=== PATIENT | male | born 1965 | race Caucasian/White ===

== ENCOUNTER 2023-07-13 08:11 | Inpatient (IN) ==
[2023-07-13 09:08] LABS: Appearance Urine Clear (Clear); Bilirubin Urine Negative (Negative); Blood Urine Negative (Negative); Color Urine Yellow; Glucose Urine UA Negative (Negative); Ketones Urine Negative (Negative); Leukocyte Esterase Urine Negative (Negative); Nitrite Urine Negative (Negative); Protein Urine Negative (Negative); Specific Gravity Urine 1.018 (1.000-1.030); Urobilinogen Urine Negative (Negative)
[2023-07-13 09:10] LABS: Prothrombin Time 10.5 Seconds (9.0-12.0)
[2023-07-13] MEDS: ACETAMINOPHEN 1,000 MG/100 ML VIAL IV STA (09:10)
[2023-07-13] MEDS: SODIUM CHLORIDE 0.9% 1,000 ML IV SCH (09:10)
[2023-07-13] MEDS: MoRPHine SULFATE 4 MG/ML 1 ML CARP\\VIAL IV STA ×2 (09:10→12:21)
[2023-07-13 09:11] LABS: Alanine Aminotransferase 21 U/L (7-52); Albumin Globulin Ratio 1.7 (0.9-2); Albumin Level 4.5 gm/dl (3.4-5.0); Alkaline Phosphatase 58 U/L (34-104); Anion Gap 8 (3-11); Aspartate Aminotransferase 16 U/L (13-39); BUN Creatinine Ratio 10.3 (10-20); Bilirubin,Total 0.7 mg/dl (0.2-1.0); Blood Urea Nitrogen 12 mg/dl (6-23); Calcium 9.2 mg/dl (8.6-10.3); Carbon Dioxide 29 mmol/L (21-32); Chloride 102 mmol/L (98-107); Creatinine Clr Calc Pharmacy 96.3 ml/min; Est GFR (African American) 80.6 ml/min; Est GFR (Non-African American) 69.5 ml/min; Globulin 2.7 gm/dl (2.5-4.0); Glucose 94 mg/dl (70-99(Fasting)); Lipase 8 U/L (11-82); Magnesium 1.6 mg/dl (1.7-2.4); Potassium 3.6 mmol/L (3.5-5.1); Sodium 139 mmol/L (136-145); Total Protein 7.2 gm/dl (6.0-8.3)
--- NOTE | 2023-07-13 09:12 | Emergency Department Note ---
Impression & Plan Abdominal pain, Crohn's disease ED Provider Note ED Provider Note NAME: CINDY GRAHAM AGE:57 SEX: Male : 1965 ARRIVES VIA: Private vehicle INFORMANT: Patient ED PROVIDER(s): Josefa Hinkle DO CHIEF COMPLAINT: Abdominal pain HPI: This is a 57-year-old male with a history of Crohn's disease who presents emerged part due to concern for abdominal pain which woke him up around 4 AM. He states the abdominal pain was central. He states he was unable to go back to sleep until 5 AM got up. He states he did have a bowel movement which to him seemed mostly normal except there was a smaller amount defecated, he did not notice any black or bloody stools. Patient states pain slowly through the morning has been constant but seems to be migrating more to the right. He denies nausea, vomiting, fevers or chills. He states this is inconsistent with prior Crohn's flares. He states no recent change in diet. He states he was recently changed from Humira to another similar injectable, Adalinumab, and he did have that administered this past week for the first time. He does get colonoscopies every 3 years, and follows with GI routinely. No known sick contacts, no recent travel. PAST MEDICAL HISTORY:See Below PAST SURGICAL HISTORY:See Below FAMILY HISTORY:See Below SOCIAL HISTORY:See Below HOME MEDICATIONS:See Below ALLERGIES:See Below VITALS:See Below PHYSICAL EXAMINATION: GENERAL: alert, uncomfortable appearing, well nourished, no distress, non-toxic EYE EXAM: normal conjunctiva, PERRL and EOM's grossly intact OROPHARYNX: no exudate, no erythema, lips, buccal mucosa, and tongue normal and mucous membranes are moist NECK: supple, no nuchal rigidity, no adenopathy, non-tender LUNGS: Clear to auscultation. Normal chest wall mechanics, no w/r/r HEART: no murmurs, S1 normal and S2 normal ABDOMEN: abdomen soft, central and right mid abdominal tenderness with palpation, normo-active bowel sounds, no masses, no rebound or guarding. Dull to percussion. SKIN: no rashes, petechiae, orbruising UPPER EXTREMITIES: upper extremities are grossly normal. FROM, nml pulses b/l. LOWER EXTREMITIES: No pitting edema. FROM, nml pulses b/l. NEURO EXAM: Normal sensorium, cranial nerves II-XII grossly intact, normal speech, no facial droop,nogross weakness of arms, no gross weakness of legs. Gross sensation intact. No ataxia. Vital Signs: reviewed and remarkable Differential Diagnosis: Crohn's flare, appendicitis, perforation, fistula, GI bleed, diverticulitis, bowel obstruction, mesenteric ischemia, ureterolithiasis, as well as others were MEDICAL DECISION MAKING: This is a 57-year-old male presents emergency department due to concern for abdominal pain that began early this morning at 4 AM. Patient uncomfortable appearing at bedside with both central and right lower quadrant abdominal pain. He was afebrile vital signs stable. Labs drawn and sent, IV established, EKG performed at bedside interpreted me and patient monitored on telemetry. He was started on IV fluids and given IV Tylenol and IV morphine for pain. IV Zofran added additionally for his nausea. Patient's labs did reveal leukocytosis, but were otherwise reassuring. CT is read by radiology showed evidence of acute inflammation suggestive of flare of his known inflammatory bowel disease, no appendicitis, no perforation, no bowel obstruction, no other acute pathology noted. Patient was given additional dose of morphine. Due to concern for management of acute pain and flare of his Crohn's after being previously well- controlled, case discussed with the hospitalist team for additional evaluation and management. Patient denies any other changes that would have previously caused a Crohn's flare although notes that he was recently taken off Humira due to formulary [facility] and started on a different injectable med. It is unclear if this could have contributed to his presentation today. Consultation(s): 1249: Discussed with Dr. Bullock, [facility] hospitalist team, for additional evaluation and management. ER Treatment Provided: See below Diagnostics Interpreted By Me: -ECG: Normal sinus at 94, normal axis, normal intervals, nonspecific ST/T wave changes, PVCs noted -Cardiac Monitoring: An order was placed for continuous cardiac monitoring. The monitor shows a rate of 87 with normal sinus rhythm. -Laboratory studies: As stated above and show below. -Imaging studies: CT a/p - No perforation, no bowel obstruction Triage Nursing Note Reviewed Prior/Outside Records Reviewed - Past Med/Surg History Social History Smoking Status: Never smoker Preferred Language: Portuguese Feels Safe at Home: Yes Allergies Allergies Allergy/AdvReac Type Severity Reaction Status Date / Time No Known Allergies Allergy Verified 07/13/23 13:56 Home Meds Home Medications Medication Instructions Recorded Confirmed adalimumab 40 mg/0.4 mL 40 mg subcut UD 07/13/23 07/13/23 subcutaneous pen kit (Humira(CF) Pen) bupropion HCl 100 mg tablet,12 hr 200 mg PO DAILY 07/13/23 07/13/23 sustained-release diazepam 5 mg tablet 2.5 mg PO DAILY PRN Panic Attack(S) 07/13/23 07/13/23 hydroxyzine HCl 25 mg tablet 25 mg PO BID PRN Anxiety 07/13/23 07/13/23 mometasone 200 mcg/actuation HFA 1 puff inhalation DAILY 07/13/23 07/13/23 aerosol inhaler (Asmanex HFA) montelukast 10 mg tablet 10 mg PO DAILY 07/13/23 07/13/23 omeprazole 40 mg capsule,delayed 40 mg PO BID 07/13/23 07/13/23 release Results & Data (ED) Vital Signs Vital Signs - 24 hr 07/13/23 08:12 07/13/23 08:12 07/13/23 09:36 Temperature 36.6 C Temperature Source Temporal Artery Scan Pulse Rate 61 98 H Pulse Rate [Apical] Pulse Rate from SpO2 Sensor Respiratory Rate 18 18 Respiratory Effort / Characteristics Respiratory Depth Respiratory Pattern Blood Pressure 175/91 H Blood Pressure [Right Arm] Blood Pressure Mean 119 Blood Pressure Mean [Right Arm] Pulse Oximetry 96 Oxygen Delivery Method Sepsis Recent Fever Within 48 Hours No Sepsis New/Unexplained Change in Mental Status N/A Sepsis Action Taken by Nursing No Action Required 07/13/23 10:08 07/13/23 12:00 07/13/23 12:30 Temperature Temperature Source Pulse Rate 90 85 Pulse Rate [Apical] 93 H Pulse Rate from SpO2 Sensor 84 60 Respiratory Rate 18 16 22 Respiratory Effort / Characteristics Non-Labored Respiratory Depth Normal Respiratory Pattern Regular Blood Pressure 141/102 H Blood Pressure [Right Arm] 166/107 H Blood Pressure Mean 115 Blood Pressure Mean [Right Arm] 126 Pulse Oximetry 97 95 96 Oxygen Delivery Method Room Air Room Air Sepsis Recent Fever Within 48 Hours Sepsis New/Unexplained Change in Mental Status Sepsis Action Taken by Nursing Laboratory Data 07/13/23 08:41 07/13/23 08:41 Lab Results 05/12/24 Range/Units 08:41 WBC 15.83 H (4.8-10.8) K/ul RBC 4.65 L (4.70-6.10) M/uL Hgb 14.2 (14.0-18.0) g/dl Hct 41.3 L (42.0-52.0) % MCV 88.8 (80.0-100.0) fL MCH 30.5 (25.0-34.0) pg MCHC 34.4 (32.0-36.0) g/dL RDW Std Deviation 42.7 (36.4-46.3) fL RDW Coeff of Mariela 13.1 (11.5-14.5) % Plt Count 258 (130-400) K/uL MPV 10.2 (9.4-12.4) fL Immature Gran % (Auto) 0.4 % Neut % (Auto) 81.2 % Lymph % (Auto) 11.1 % [place] % (Auto) 6.1 % Eos % (Auto) 0.9 % Baso % (Auto) 0.3 % Neut # (Auto) 12.85 H (1.40-6.50) K/uL Lymph # (Auto) 1.75 (1.20-3.40) K/uL [place] # (Auto) 0.97 H (0.11-0.59) K/uL Eos # (Auto) 0.15 (0.00-0.50) K/uL Baso # (Auto) 0.04 (0.00-0.20) K/uL Immature Gran # (Auto) 0.07 (0.01-0.20) K/uL ESR 4 (0-20) mm/hr PT 10.5 (9.0-12.0) Seconds INR 1.0 (0.9-1.1) Sodium 139 (136-145) mmol/L Potassium 3.6 (3.5-5.1) mmol/L Chloride 102 (98-107) mmol/L Carbon Dioxide 29 (21-32) mmol/L Anion Gap 8 (3-11) BUN 12 (6-23) mg/dl Creatinine 1.16 (0.6-1.4) mg/dl Est Cr Clr Drug Dosing 96.3 ml/min Est GFR ( Amer) 80.6 ml/min Est GFR (Non-Af Amer) 69.5 ml/min BUN/Creatinine Ratio 10.3 (10-20) Glucose 94 (70-99(Fasting)) mg/dl Calcium 9.2 (8.6-10.3) mg/dl Magnesium 1.6 L (1.7-2.4) mg/dl Total Bilirubin 0.7 (0.2-1.0) mg/dl AST 16 (13-39) U/L ALT 21 (7-52) U/L Alkaline Phosphatase 58 (34-104) U/L C-Reactive Protein < 0.50 (0-0.5) mg/dl Total Protein 7.2 (6.0-8.3) gm/dl Albumin 4.5 (3.4-5.0) gm/dl Globulin 2.7 (2.5-4.0) gm/dl Albumin/Globulin Ratio 1.7 (0.9-2) Lipase 8 L (11-82) U/L Procalcitonin < 0.02 (0-0.5) ng/ml Urine Color Yellow Urine Appearance Clear (Clear) Urine pH 5.0 (4.5-7.5) Ur Specific [place] 1.018 (1.000-1.030) Urine Protein Negative (Negative) Urine Glucose (UA) Negative (Negative) Urine Ketones Negative (Negative) Urine Blood Negative (Negative) Urine Nitrite Negative (Negative) Urine Bilirubin Negative (Negative) Urine Urobilinogen Negative (Negative) Ur Leukocyte Esterase Negative (Negative) Administered Medications Sodium Chloride (Nss) 1,000 mls @ 250 mls/hr IV .Q4H SULEMA Stop: 08/12/23 08:59 Last Admin: 07/13/23 12:30 Dose: 250 mls/hr Documented By: Infusion: 07/13/23 12:30 Dose: Infused Documented By: Admin: 07/13/23 09:10 Dose: 250 mls/hr Documented By: LEONARDO Discontinued Medications Hydromorphone HCl (Hydromorphone Inj 1 Mg/Ml Syringe) 1 mg IV NOW STA Stop: 07/13/23 14:56 Last Admin: 07/13/23 15:01 Dose: 1 mg Documented By: JANNET Acetaminophen (Ofirmev) 1,000 mg in 100 mls @ 400 mls/hr IV NOW STA Stop: 07/13/23 09:07 Last Infusion: 07/13/23 09:56 Dose: Infused Documented By: Admin: 07/13/23 09:10 Dose: 400 mls/hr Documented By: LEONARDO Magnesium Sulfate/Dextrose (Magnesium Sulfate / D5w) 1 gm in 100 mls @ 100 mls/hr IV NOW STA Stop: 07/13/23 10:24 Last Infusion: 07/13/23 11:13 Dose: Infused Documented By: Admin: 07/13/23 09:36 Dose: 100 mls/hr Documented By: LEONARDO Methylprednisolone (Methylprednisolone 125 Mg/2 Ml Vial) 120 mg IV NOW STA Stop: 07/13/23 13:28 Last Admin: 07/13/23 15:01 Dose: 120 mg Documented By: JANNET Morphine Sulfate (Morphine Sulfate 4 Mg/Ml 1 Ml Carp\Vial) 4 mg IV NOW STA Stop: 07/13/23 08:54 Last Admin: 07/13/23 09:10 Dose: 4 mg Documented By: LEONARDO Morphine Sulfate (Morphine Sulfate 4 Mg/Ml 1 Ml Carp\Vial) 4 mg IV NOW STA Stop: 07/13/23 12:16 Last Admin: 07/13/23 12:21 Dose: 4 mg Documented By: JANNET Ondansetron HCl (Ondansetron Inj 2 Mg/Ml 2 Ml Vial) 4 mg IV NOW STA Stop: 07/13/23 13:54 Last Admin: 07/13/23 15:02 Dose: Not Given Documented By: JANNET Imaging Data Radiologist's Impression: Abdomen/Pelvis CT 07/13/23 08:53 CT abd pelvis oral and IV con CLINICAL HISTORY: RLQ abd pain, hx Crohn's TECHNIQUE: Helical axial images of the abdomen and pelvis were obtained and displayed. Automated dose lowering techniques and/or adjustment according to patient size were utilized for this exam. This exam was performed with intravenous contrast. CT DOSE: 1613.47 mGy.cm COMPARISON: None available at the time of this dictation. FINDINGS: Lower chest: Bibasilar atelectasis versus scarring is seen. Liver: Subcentimeter hypodensities in the liver are too small to characterize. Gallbladder and biliary tree: No calcified gallstones. Normal caliber wall. No intra- or extrahepatic biliary ductal dilation. Pancreas: Unremarkable, no focal lesions. Spleen: Unremarkable. Adrenals: Unremarkable. Kidneys and ureters: Subcentimeter hypodensities are too small to characterize. Bladder: Diffuse homogeneous wall thickening is seen. Reproductive organs: Unremarkable. Bowel: Wall thickening and fat stranding are seen in the cecum. The appendix is not enlarged. Lymph nodes Retroperitoneal: Unremarkable. Pelvic: Unremarkable. Mesenteric: Subcentimeter lymph nodes are seen in the right lower quadrant. Peritoneum: Fat stranding is seen about the cecum. No evidence of drainable fluid collection or pneumoperitoneum. Vessels: Unremarkable. Abdominal wall: Unremarkable. Bones: Unremarkable. IMPRESSION: Bowel wall thickening and surrounding fat stranding in the cecum compatible with inflammatory bowel disease in this patient with history of Crohn's. No evidence of appendicitis. ACT 112: Negative or not required by law. Electronically signed by: Fernando Pappas M.D. 07/13/2023 11:53 AM Discharge Plan Visit Data Chief Complaint: Abdominal Pain Stated Complaint: ABD PAINS ED Provider: Josefa Hinkle Discharge Problem: Abdominal pain, Crohn's disease Patient Disposition: Admitted As Inpatient Discharge Instructions Interventions: ED Discharge Assessment Last Done: 07/13/23 14:58 Forms Stand Alone Forms: [facility] [place] [employer] Prescriptions Prescriptions: No Action omeprazole 40 mg capsule,delayed release(DR/EC) 40 mg PO BID bupropion HCl 100 mg tablet sustained-release 12 hr 200 mg PO DAILY montelukast 10 mg tablet 10 mg PO DAILY hydroxyzine HCl 25 mg tablet 25 mg PO BID PRN (Reason: Anxiety) diazepam 5 mg tablet 2.5 mg PO DAILY PRN (Reason: Panic Attack(S)) Asmanex HFA 200 mcg/actuation HFA aerosol inhaler 1 puff INHALATION DAILY Humira(CF) Pen 40 mg/0.4 mL pen injector kit 40 mg SUBCUT UD Referrals Referrals: [facility] [Primary Care Provider] -
[2023-07-13 09:13] LABS: Basophils # (auto) 0.04 K/uL (0.00-0.20); Basophils % (auto) 0.3 %; Eosinophils # (auto) 0.15 K/uL (0.00-0.50); Eosinophils % (auto) 0.9 %; Hematocrit (blood only) 41.3 % (42.0-52.0); Hemoglobin 14.2 g/dl (14.0-18.0); Immature Granulocytes # (auto) 0.07 K/uL (0.01-0.20); Immature Granulocytes % (auto) 0.4 %; Lymphocytes # (auto) 1.75 K/uL (1.20-3.40); Lymphocytes % (auto) 11.1 %; Mean Corpuscular Hemoglobin 30.5 pg (25.0-34.0); Mean Corpuscular Hgb Conc 34.4 g/dL (32.0-36.0); Mean Corpuscular Volume 88.8 fL (80.0-100.0); Mean Platelet Volume 10.2 fL (9.4-12.4); Monocytes # (auto) 0.97 K/uL (0.11-0.59); Monocytes % (auto) 6.1 %; Neutrophils # (auto) 12.85 K/uL (1.40-6.50); Neutrophils % (auto) 81.2 %; Platelet Count 258 K/uL (130-400); RDW Coefficient of Variation 13.1 % (11.5-14.5); RDW Standard Deviation 42.7 fL (36.4-46.3); Red Blood Count 4.65 M/uL (4.70-6.10); White Blood Count 15.83 K/ul (4.8-10.8)
[2023-07-13] MEDS: MAGNESIUM SULFATE / D5W 1 GM/100 ML BAG IV STA (09:36)
--- NOTE | 2023-07-13 11:55 | CT Scan Report ---
CT abd pelvis oral and IV con CLINICAL HISTORY: RLQ abd pain, hx Crohn's TECHNIQUE: Helical axial images of the abdomen and pelvis were obtained and displayed. Automated dose lowering techniques and/or adjustment according to patient size were utilized for this exam. This e xam was performed with intravenous contrast. CT DOSE: 1613.47 mGy.cm COMPARISON: None available at the time of this dictation. FINDINGS: Lower chest: Bibasilar atelectasis versus scarring is seen. Liver: Subcentimeter hypodensities in the liver are too small to characterize. Gallbladder and biliary tree: No calcified gallstones. Normal caliber wall. No intra- or extrahepatic biliary ductal dilation. Pancreas: Unremarkable, no focal lesions. Spleen: Unremarkable. Adrenals: Unremarkable. Kidneys and ureters: Subcentimeter hypodensities are too small to characterize. Bladder: Diffuse homogeneous wall thickening is seen. Reproductive organs: Unremarkable. Bowel: Wall thickening and fat stranding are seen in the cecum. The appendix is not enlarged. Lymph nodes Retroperitoneal: Unremarkable. Pelvic: Unremarkable. Mesenteric: Subcentimeter lymph nodes are seen in the right lower quadrant. Peritoneum: Fat stranding is seen about the cecum. No evidence of drainable fluid collection or pneum operitoneum. Vessels: Unremarkable. Abdominal wall: Unremarkable. Bones: Unremarkable. IMPRESSION: Bowel wall thickening and surrounding fat stranding in the cecum compatible with inflammatory bowel d isease in this patient with history of Crohn's. No evidence of appendicitis. ACT 112: Negative or not required by law. Electronically signed by: Fernando Pappas M.D. 07/13/2023 11:53 AM
--- NOTE | 2023-07-13 12:18 | Electrocardiogram Report ---
Test Reason : Blood Pressure : / mmHG Vent. Rate : 094 BPM Atrial Rate : 094 BPM P-R Int : 154 ms QRS Dur : 094 ms QT Int : 352 ms P-R-T Axes : 066 060 046 degrees QTc Int : 440 ms Sinus rhythm with frequent Premature ventricular complexes Otherwise normal ECG No previous ECGs available Confirmed by Denis Pena ([id number]) on 07/13/2023 12:18:01 PM Referred By: [facility] Confirmed By:Josh Pena
--- NOTE | 2023-07-13 13:02 | History & Physical Report ---
Date of Service July 13, 2023 Assessment & Plan (1) Crohn's disease: (2) Abdominal pain: Plan Mr. Martinez is a 57 year old gentleman with past medical history remarkable for Crohn's disease, presented to [facility] ED due to diarrhea and abdominal cramping. No records available for view in care everywhere. #Acute flare of Crohns Disease Bowel wall thickening and surrounding fat stranding in the cecum compatible with inflammatory bowel disease in this patient with history of Crohn's. No evidence of appendicitis. -s/p methylpred 120mg in ed -Tylenol, Toradol for moderate pain, Dilaudid for severe -Cipro/Flagyl empirically -GI consult, discuss continued steroid taper -Gentle IVF and CLD #Gerd On home omeprazole BID -PPI IV in interim while admitted #PTSD #Depression Continue bupropion 100mg daily Continue hydroxyzine 25mg qpm Continue diazepam prn 100mg daily #asthma #chronic rhinitis singulair DVT lovenox Admit med surg Admission and Anticipated Discharge Date Admission Date: Time spent evaluating patient, direct bedside care, chart review, placing orders, interpretation of diagnostic studies, discussion with consultants, patient, and family members, as well as other required patient management activities is 60 minutes. History of Present Illness Chief Complaint: Abdominal pain Primary Care Provider: [facility] Mr. Martinez is a 57 year old gentleman with past medical history remarkable for Crohn's disease, presented to [facility] ED due to diarrhea and abdominal cramping. He states that he had been controlled on Humira for monthly for control. Over the last month, there were formulary changes and he was transitioned to a different monoclonal antibody. He received that injection on Friday. Yesterday, he noted intense abdominal cramping marked by multiple diarrheal episodes. He denies any blood in the stool. He reports cramping consistent with last flare roughly 10 years prior. He denies fevers, chills, chest pain, palpitations, recent travel or any other acute precipitating events. Patient due for C-scope and EGD in 09/2023. Follows with [facility] for primary care, [place] for IBD. In the ED, vitals were notable for BP of 140s, HR of 80-90s, and O2 sat of 90s Imaging revealed Bowel wall thickening and surrounding fat stranding in the cecum compatible with inflammatory bowel disease in this patient with history of Crohn's. EKG NSR Qtc 440 ED interventions: 2L IV morphine Patient to be admitted to med/surg for further evaluation and management of acute crohn's flare Allergies Allergy/AdvReac Type Severity Reaction Status Date / Time No Known Allergies Allergy Verified 07/13/23 13:56 Home Medications Medication Instructions Recorded Confirmed Type adalimumab 40 mg/0.4 mL 40 mg subcut UD 07/13/23 07/13/23 History subcutaneous pen kit (Humira(CF) Pen) bupropion HCl 100 mg tablet,12 hr 200 mg PO DAILY 07/13/23 07/13/23 History sustained-release diazepam 5 mg tablet 2.5 mg PO DAILY PRN Panic Attack(S) 07/13/23 07/13/23 History hydroxyzine HCl 25 mg tablet 25 mg PO BID PRN Anxiety 07/13/23 07/13/23 History mometasone 200 mcg/actuation HFA 1 puff inhalation DAILY 07/13/23 07/13/23 History aerosol inhaler (Asmanex HFA) montelukast 10 mg tablet 10 mg PO DAILY 07/13/23 07/13/23 History omeprazole 40 mg capsule,delayed 40 mg PO BID 07/13/23 07/13/23 History release Past Med/Surg History Medical History (Updated 07/13/23 @ 15:49 by Laura Bullock MD) PTSD (post-traumatic stress disorder) Depression Crohn's disease Social History Smoking Status: Never smoker Preferred Language: Luxembourgish Feels Safe at Home: Yes Review of Systems Review of Systems: Constitutional: (-) fever/chills, (-) recent loss of weight, (-) appetite changes, (-) night sweats. Head: (-) headache, (-) dizziness. Eye: (-) blurring of vision, (-) double vision, (-) redness. Ear: (-) hearing loss, (-) discharge, (-) vertigo Nose: (-) discharge, (-) bleeding, (-) congestion, (-) post nasal drip. Throat: (-) sore throat, (-) hoarseness of voice, (-) odynophagia. Cardiovascular: (-) chest pain, (-) palpitations, (-) syncope, (-) orthopnea, (- ) PND, (-) leg swelling. Respiratory: (-) shortness of breath, (-) cough, (-) wheezing, (-) hemoptysis. Neuro: (-) weakness in extremities, (-) numbness, (-) tingling, (-) tremor. Gastrointestinal: (++) belly pain, (++) belly distension, (-) nausea, (-) vomiting, (++) diarrhea, (-) constipation Genitourinary: (-) hematuria, (-) dysuria, (-) polyuria, (-) hesitancy, (-) frequency, (-) urinary incontinence. Musculoskeletal: (-) myalgia, (-) arthralgia. Skin: (-) rashes. Endocrine: (-) heat/cold intolerance. Psychiatry: (-) depression, (-) hallucination. Physical Exam Physical Exam: GENERAL APPEARANCE: AxOx4 mildly uncomfortable HEENT: NC, AT. MMM. EOMI, clear conjunctiva, oropharynx clear. NECK: Supple without lymphadenopathy. No stiffness or restricted ROM. HEART: Normal rate and regular rhythm, normal S1/S1, no m/r/g LUNGS: CTAB, moving air well. No crackles or wheezes are heard. ABDOMEN: protuberant, tender to mild palpation +high frequency bowel sounds BACK: No CVAT, no obvious deformity. EXTREMITIES: Without cyanosis, clubbing or edema. NEUROLOGICAL: Grossly nonfocal. Alert and oriented, moving all 4 extremities. CN not formally tested but appear grossly intact. Skin: Warm and dry without any rash. Results & Data Results & Data Vital Signs (Past 12 Hours) Vital Signs Temp Pulse Pulse Resp BP BP Pulse Ox 07/13/23 12:30 85 22 96 07/13/23 12:00 90 16 141/102 H 95 07/13/23 10:08 93 H 18 166/107 H 97 07/13/23 09:36 98 H 07/13/23 08:12 18 07/13/23 08:12 36.6 C 61 18 175/91 H 96 O2 Del Method 07/13/23 12:30 07/13/23 12:00 Room Air 07/13/23 10:08 Room Air 07/13/23 09:36 07/13/23 08:12 07/13/23 08:12 Laboratory Results Short CBC 07/13/23 Range/Units 08:41 WBC 15.83 H (4.8-10.8) K/ul Hgb 14.2 (14.0-18.0) g/dl Hct 41.3 L (42.0-52.0) % Plt Count 258 (130-400) K/uL BMP 07/13/23 08:41 Sodium 139 Potassium 3.6 Chloride 102 Carbon Dioxide 29 BUN 12 Creatinine 1.16 Glucose 94 Calcium 9.2 Liver Function 07/13/23 Range/Units 08:41 Total Bilirubin 0.7 (0.2-1.0) mg/dl AST 16 (13-39) U/L ALT 21 (7-52) U/L Alkaline Phosphatase 58 (34-104) U/L Albumin 4.5 (3.4-5.0) gm/dl Urine 07/13/23 Range/Units 08:41 Urine Color Yellow Urine Appearance Clear (Clear) Urine pH 5.0 (4.5-7.5) Ur Specific [place] 1.018 (1.000-1.030) Urine Protein Negative (Negative) Urine Glucose (UA) Negative (Negative) Diagnostic Findings Abdomen/Pelvis CT 07/13/23 08:53 CT abd pelvis oral and IV con CLINICAL HISTORY: RLQ abd pain, hx Crohn's TECHNIQUE: Helical axial images of the abdomen and pelvis were obtained and displayed. Automated dose lowering techniques and/or adjustment according to patient size were utilized for this exam. This exam was performed with intravenous contrast. CT DOSE: 1613.47 mGy.cm COMPARISON: None available at the time of this dictation. FINDINGS: Lower chest: Bibasilar atelectasis versus scarring is seen. Liver: Subcentimeter hypodensities in the liver are too small to characterize. Gallbladder and biliary tree: No calcified gallstones. Normal caliber wall. No intra- or extrahepatic biliary ductal dilation. Pancreas: Unremarkable, no focal lesions. Spleen: Unremarkable. Adrenals: Unremarkable. Kidneys and ureters: Subcentimeter hypodensities are too small to characterize. Bladder: Diffuse homogeneous wall thickening is seen. Reproductive organs: Unremarkable. Bowel: Wall thickening and fat stranding are seen in the cecum. The appendix is not enlarged. Lymph nodes Retroperitoneal: Unremarkable. Pelvic: Unremarkable. Mesenteric: Subcentimeter lymph nodes are seen in the right lower quadrant. Peritoneum: Fat stranding is seen about the cecum. No evidence of drainable fluid collection or pneumoperitoneum. Vessels: Unremarkable. Abdominal wall: Unremarkable. Bones: Unremarkable. IMPRESSION: Bowel wall thickening and surrounding fat stranding in the cecum compatible with inflammatory bowel disease in this patient with history of Crohn's. No evidence of appendicitis. ACT 112: Negative or not required by law. Electronically signed by: Fernando Pappas M.D. 07/13/2023 11:53 AM Medications Administered Home Medications Medication Instructions Recorded Confirmed Last Taken adalimumab 40 mg/0.4 mL 40 mg subcut UD 07/13/23 07/13/23 Unknown subcutaneous pen kit (Humira(CF) Pen) bupropion HCl 100 mg tablet,12 hr 200 mg PO DAILY 07/13/23 07/13/23 Unknown sustained-release diazepam 5 mg tablet 2.5 mg PO DAILY PRN Panic Attack(S) 07/13/23 07/13/23 Unknown hydroxyzine HCl 25 mg tablet 25 mg PO BID PRN Anxiety 07/13/23 07/13/23 Unknown mometasone 200 mcg/actuation HFA 1 puff inhalation DAILY 07/13/23 07/13/23 Unknown aerosol inhaler (Asmanex HFA) montelukast 10 mg tablet 10 mg PO DAILY 07/13/23 07/13/23 Unknown omeprazole 40 mg capsule,delayed 40 mg PO BID 07/13/23 07/13/23 Unknown release Active Medications Generic Name Dose Route Start Last Admin Trade Name Freq PRN Reason Stop Dose Admin Sodium Chloride 1,000 mls @ 250 mls/hr 07/13/23 09:00 07/13/23 12:30 Nss IV 08/12/23 08:59 250 mls/hr .Q4H SULEMA Administration
[2023-07-13] MEDS ORDERED: Patient's ALLERGY Info needs ENTERED SCH (13:45)
[2023-07-13 13:56] LABS: C Reactive Protein < 0.50 mg/dl (0-0.5)
[2023-07-13] MEDS: HYDROmorphone INJ 1 MG/ML SYRINGE IV STA (15:01)
[2023-07-13] MEDS: methylPREDNISolone 125 MG/2 ML VIAL IV STA (15:01)
[2023-07-13] MEDS: ONDANSETRON INJ 2 MG/ML 2 ML VIAL IV STA (15:02)
[2023-07-13] MEDS ORDERED: diazePAM 5 MG TABLET PO PRN (16:20)
[2023-07-13] MEDS ORDERED: ACETAMINOPHEN 325 MG TAB PO PRN (16:20)
[2023-07-13] MEDS: CIPROFLOXACIN / D5W 400 MG/200 ML BAG IV SCH (17:53)
[2023-07-13] MEDS: metroNIDAZOLE 500 MG/100 ML BAG IV SCH (17:58)
[2023-07-13] MEDS: ENOXAPARIN INJ 40 MG/0.4 ML SYR SQ SCH (18:04)
[2023-07-13] MEDS: KETOROLAC 30 MG/ML VIAL IV PRN (19:47)
[2023-07-13] MEDS: hydrOXYzine HCl 25 MG TAB PO SCH (21:01)
[2023-07-13] MEDS: PANTOprazole 40 MG in SYRINGE 0 ML IV SCH (21:01)
[2023-07-14 03:45] LABS: Adenovirus F 40/41 PCR Not Detected (NotDetected); Astrovirus PCR Not Detected (NotDetected); Campylobacter PCR Not Detected (NotDetected); Cryptosporidium PCR Not Detected (NotDetected); Cyclospora cayetanensis PCR Not Detected (NotDetected); Entamoeba histolytica PCR Not Detected (NotDetected); Enteroaggregative E.coli(EAEC) Not Detected (NotDetected); Enteropathogenic E.coli (EPEC) Not Detected (NotDetected); Enterotoxigenic E.coli (ETEC) Not Detected (NotDetected); Giardia lamblia PCR Not Detected (NotDetected); Norovirus GI/GII PCR Not Detected (NotDetected); Plesiomonas shigelloides PCR Not Detected (NotDetected); Rotavirus A PCR Not Detected (NotDetected); Salmonella PCR Not Detected (NotDetected); Sapovirus PCR Not Detected (NotDetected); Shiga-like Toxin E.coli (STEC) Not Detected (NotDetected); Shigella/Enteroinvasive E.coli Not Detected (NotDetected); Vibrio cholerae PCR Not Detected (NotDetected); Vibrio species PCR Not Detected (NotDetected); Yersinia enterocolitica PCR Not Detected (NotDetected)
[2023-07-14] MEDS: HYDROmorphone INJ 1 MG/ML SYRINGE IV PRN (05:02)
[2023-07-14 05:54] LABS: Hemoglobin 13.1 g/dl (14.0-18.0); Mean Corpuscular Hemoglobin 30.5 pg (25.0-34.0); Mean Corpuscular Hgb Conc 34.5 g/dL (32.0-36.0); Mean Corpuscular Volume 88.6 fL (80.0-100.0); Mean Platelet Volume 10.5 fL (9.4-12.4); Platelet Count 246 K/uL (130-400); RDW Coefficient of Variation 13.1 % (11.5-14.5); RDW Standard Deviation 42.5 fL (36.4-46.3); Red Blood Count 4.29 M/uL (4.70-6.10); White Blood Count 12.63 K/ul (4.8-10.8)
[2023-07-14 06:09] LABS: BUN Creatinine Ratio 13.7 (10-20); Calcium 8.8 mg/dl (8.6-10.3); Creatinine Clr Calc Pharmacy 109.5 ml/min; Est GFR (African American) 94.1 ml/min; Est GFR (Non-African American) 81.2 ml/min; Magnesium 1.8 mg/dl (1.7-2.4); Phosphorus 3.5 mg/dl (2.5-4.9); Potassium 3.9 mmol/L (3.5-5.1)
[2023-07-14] MEDS: MONTELUKAST SODIUM 10 MG TABLET PO SCH (08:19)
[2023-07-14] MEDS: buPROPion SR 100 MG TABCR PO SCH (08:19)
[2023-07-14] MEDS: FLUTICASONE FUROATE 100MCG 14 PUFFS/INHALER INH SCH (08:20)
--- NOTE | 2023-07-14 16:00 | Hospitalist Progress Note ---
Date of Service July 14, 2023 Assessment & Plan (1) Crohn's disease: (2) Abdominal pain: Plan Mr. Martinez is a 57 year old gentleman with past medical history remarkable for Crohn's disease, presented to [facility] ED due to diarrhea and abdominal cramping. No records available for view in care everywhere. #Acute flare of Crohns Disease Bowel wall thickening and surrounding fat stranding in the cecum compatible with inflammatory bowel disease in this patient with history of Crohn's. No evidence of appendicitis. -s/p methylpred 120mg in ed -Tylenol, Toradol for moderate pain, Dilaudid for severe -Cipro/Flagyl empirically -GI consult, discuss continued steroid taper -Gentle IVF and CLD -Clinically little better today with decreasing pain and no diarrhea, no nausea no vomiting -C-reactive protein is normal -Awaiting GI evaluation and recommendations #Gerd On home omeprazole BID -PPI IV in interim while admitted #PTSD #Depression Continue bupropion 100mg daily Continue hydroxyzine 25mg qpm Continue diazepam prn 100mg daily #asthma #chronic rhinitis singulair DVT lovenox Admit med surg Will continue current management Admission and Anticipated Discharge Date Admission Date: July 13, 2023 Subjective 07/14/2023 The patient was seen and examined in medical floor in the presence of the He has been complaining of right lower quadrant pain for the last 2 to 3 days Denies any nausea or vomiting and does not have any bloody stool No fever and no chills He has been feeling a little bit better since admission Review of Systems Review of Systems: All systems reviewed and are unremarkable except as noted below Physical Exam Physical Exam: Lying in bed with some discomfort due to abdominal pain Constitutional: well developed, well nourished, + ill appearing and + obese Eyes: PERRL, conjunctivae normal, anicteric sclerae ENMT: external ear and nose normal, oropharynx normal Neck: trachea midline, no thyromegaly Respiratory: no respiratory distress Auscultation: lungs clear to auscultation bilaterally Cardiovascular: Rate/Rhythm: regular rate and regular rhythm; not tachycardic Heart Sounds: normal S1 and normal S2; no murmur Extremities: no edema Gastrointestinal (Abdomen): Inspection/Auscultation: normal bowel sounds; abdomen not distended Percussion/Palpation: + abdomen tender (Right lower quadrant without guarding and no rigidity) and abdomen soft Musculoskeletal: No acute arthritis involving any of the joints Neurologic: normal touch/pain/proprioception and moves all extremities; no focal motor deficits Psychiatric: A+Ox3, euthymic affect Lymphatic: no cervical or axillary lymphadenopathy Results & Data Results & Data Vital Signs (Past 12 Hours) Vital Signs Temp Pulse Pulse Resp BP Pulse Ox O2 Del Method 07/14/23 15:17 36.8 C 72 16 109/73 97 Room Air 07/14/23 08:04 36.5 C 80 18 148/98 H 96 Room Air 07/14/23 07:30 Room Air Laboratory Results Short CBC 07/14/23 Range/Units 05:30 WBC 12.63 H (4.8-10.8) K/ul Hgb 13.1 L (14.0-18.0) g/dl Hct 38.0 L (42.0-52.0) % Plt Count 246 (130-400) K/uL BMP 07/14/23 05:30 Sodium 137 Potassium 3.9 Chloride 102 Carbon Dioxide 26 BUN 14 Creatinine 1.02 Glucose 160 H Calcium 8.8 Medications Administered Current Inpatient Medications Acetaminophen (Acetaminophen 325 Mg Tab) 650 mg PO Q4H PRN PRN Reason: Pain or Fever Stop: 08/12/23 16:19 Bupropion HCl (Bupropion Sr 100 Mg Tabcr) 100 mg PO DAILY [facility] Stop: 08/13/23 08:59 Last Admin: 07/14/23 08:19 Dose: 100 mg Diazepam (Diazepam 5 Mg Tablet) 2.5 mg PO DAILY PRN PRN Reason: Panic Attack(S) Stop: 08/12/23 16:19 Enoxaparin Sodium (Enoxaparin Inj 40 Mg/0.4 Ml Syr) 40 mg SQ Q24H SULEMA Stop: 08/12/23 17:59 Last Admin: 07/13/23 18:04 Dose: 40 mg Fluticasone Furoate (Fluticasone Furoate 100mcg 14 Puffs/Inhaler) 1 puffs INH DAILY [facility]; Protocol Stop: 08/13/23 08:59 Last Admin: 07/14/23 08:20 Dose: 1 puffs Hydromorphone HCl (Hydromorphone Inj 1 Mg/Ml Syringe) 1 mg IV Q6H PRN PRN Reason: Severe Pain (Scale 7, 8, 9,10) Stop: 07/27/23 16:19 Last Admin: 07/14/23 05:02 Dose: 1 mg Hydroxyzine HCl (Hydroxyzine Hcl 25 Mg Tab) 25 mg PO HS [facility] Stop: 08/12/23 20:59 Last Admin: 07/13/23 21:01 Dose: 25 mg Pantoprazole Sodium 40 mg/ (Syringe) 10 mls @ 5 mls/min IV BID SULEMA Stop: 08/12/23 20:59 Last Admin: 07/14/23 08:19 Dose: 5 mls/min Ciprofloxacin (Cipro / D5w) 400 mg in 200 mls @ 100 mls/hr IV Q12H SULEMA; Protocol Stop: 07/15/23 17:14 Last Infusion: 07/14/23 07:13 Dose: Infused Metronidazole (Flagyl) 500 mg in 100 mls @ 100 mls/hr IV Q8H SULEMA; Protocol Stop: 07/15/23 17:59 Last Infusion: 07/14/23 11:28 Dose: Infused Ketorolac Tromethamine (Ketorolac 30 Mg/Ml Vial) 30 mg IV Q6H PRN PRN Reason: Moderate Pain (Scale 4, 5, 6) Stop: 07/18/23 16:19 Last Admin: 07/13/23 19:47 Dose: 30 mg Montelukast Sodium (Montelukast Sodium 10 Mg Tablet) 10 mg PO DAILY [facility] Stop: 08/13/23 08:59 Last Admin: 07/14/23 08:19 Dose: 10 mg
[2023-07-15 06:53] LABS: Basophils # (auto) 0.02 K/uL (0.00-0.20); Basophils % (auto) 0.2 %; Eosinophils # (auto) 0.14 K/uL (0.00-0.50); Eosinophils % (auto) 1.6 %; Hematocrit (blood only) 36.8 % (42.0-52.0); Hemoglobin 12.5 g/dl (14.0-18.0); Immature Granulocytes # (auto) 0.03 K/uL (0.01-0.20); Immature Granulocytes % (auto) 0.3 %; Lymphocytes # (auto) 3.12 K/uL (1.20-3.40); Lymphocytes % (auto) 35.1 %; Mean Corpuscular Hemoglobin 30.6 pg (25.0-34.0); Mean Corpuscular Volume 90.2 fL (80.0-100.0); Mean Platelet Volume 10.5 fL (9.4-12.4); Monocytes # (auto) 0.76 K/uL (0.11-0.59); Monocytes % (auto) 8.5 %; Neutrophils # (auto) 4.82 K/uL (1.40-6.50); Neutrophils % (auto) 54.3 %; Platelet Count 219 K/uL (130-400); RDW Coefficient of Variation 13.5 % (11.5-14.5); RDW Standard Deviation 44.3 fL (36.4-46.3); Red Blood Count 4.08 M/uL (4.70-6.10); White Blood Count 8.89 K/ul (4.8-10.8)
[2023-07-15 07:34] LABS: Calcium 8.6 mg/dl (8.6-10.3); Magnesium 2.1 mg/dl (1.7-2.4); Potassium 3.6 mmol/L (3.5-5.1)
[2023-07-15 07:40] LABS: BUN Creatinine Ratio 14.3 (10-20); Creatinine Clr Calc Pharmacy 99.8 ml/min; Est GFR (African American) 84.1 ml/min; Est GFR (Non-African American) 72.5 ml/min; Phosphorus 3.5 mg/dl (2.5-4.9)
--- NOTE | 2023-07-15 09:47 | Gastrointestinal Consultation ---
Date of Consultation July 15, 2023 Assessment & Plan (1) Crohn's disease: Patient is a 57 year old male with crohn's disease first diagnosed in 2011. He does have a history of colonic stricture per patient. He [facility] He was recently changed from brand Humira to generic and he blames this for his current flare. He has been feeling better since admission and being given one dose of methylprednisolone. - recommend giving him a tapering dose of prednisone starting at 40mg daily. He tells me that he wants to start oral steroids because he is having issues with keeping an IV this time. Upon discharge he will need 40mg once daily for a week followed by a 5mg a week taper until finished. - will advance diet and see how he does with a more regular diet. - he tells me he has been in contact with his primary GI team who is working on switching him back to brand name Humira. - he should follow with his primary GI team on discharge. He is planned for colonoscopy 09/03/23 with them. History of Present Illness Reason for Consultation: Crohn's flare Requesting Physician: Laura Bullock MD Attending Physician: Stone Kwan MD History of Present Illness Patient is a 57 year old gentleman with past medical history remarkable for Crohn's disease that was diagnosed in 2011 and is followed by [facility], presented to [facility] ED on 07/13/23 with complaints of abdominal pain. He tells me that this came on suddenly in the middle of the night and as pain worsened he decided to proceed to the ED for evaluation. He tells me stools have been similar to what they have always been and are predominantly loose. He had a CT scan done 07/13/23 showing bowel wall thickening and surrounding fat stranding in cecum consistent with IBD. He was given a dose of 120mg methylprednisolone in ED. He tells me that after this dose of steroids he did start to feel better. He has not been on any other steroids this admission. He tells me pain is improved. he is tolerating clears. he would like to advance his diet. He was on Humira biweekly for years for his IBD but recently had this changed to generic with the first dose being last week. He attributes this to his current flare. he tells me he has flared in the past and has always done well with steroids. I do not have past colonoscopy records to review but patient tells me that he has had colonic strictures in the past. he has not needed surgery. He tells me his last colonoscopy was about 3 years ago and he was told that it "looked good". He is set up to have a repeat colonoscopy done 09/02 with [facility]. Allergies Allergy/AdvReac Type Severity Reaction Status Date / Time No Known Allergies Allergy Verified 07/13/23 13:56 Home Medications Medication Instructions Recorded Confirmed Type adalimumab 40 mg/0.4 mL 40 mg subcut UD 07/13/23 07/13/23 History subcutaneous pen kit (Humira(CF) Pen) bupropion HCl 100 mg tablet,12 hr 100 mg PO DAILY 07/13/23 07/13/23 History sustained-release diazepam 5 mg tablet 2.5 mg PO DAILY PRN Panic Attack(S) 07/13/23 07/13/23 History hydroxyzine HCl 25 mg tablet 25 mg PO BID PRN Anxiety 07/13/23 07/13/23 History mometasone 200 mcg/actuation HFA 1 puff inhalation DAILY 07/13/23 07/13/23 History aerosol inhaler (Asmanex HFA) montelukast 10 mg tablet 10 mg PO DAILY 07/13/23 07/13/23 History omeprazole 40 mg capsule,delayed 40 mg PO BID 07/13/23 07/13/23 History release Patient History Medical History (Updated 07/13/23 @ 15:49 by Laura Bullock MD) PTSD (post-traumatic stress disorder) Depression Social History Smoking Status: Never smoker Hx Alcohol Use: Yes Alcohol type: hard liquor Hx Substance Use: No Preferred Language: Armenian Communication Ability: Effective [employer] Required: No Beliefs That Will Affect Care: None Current Living Situation: Family Other Information That Helps Us Care for You: No Feels Safe at Home: Yes Assistive Devices: None Review of Systems Review of Systems: All systems reviewed & are unremarkable except as noted in HPI & below Physical Exam Constitutional: WD/WN, vitals as above Respiratory: normal respiratory effort, lungs clear to auscultation Cardiovascular: RRR, no murmur, no edema Gastrointestinal (Abdomen): RLQ tenderness to palpation, no guarding, soft, normal bowel sounds. Psychiatric: Orientation: alert and oriented x 3 Affect: euthymic affect Results & Data Vital Signs (Past 12 Hours) Vital Signs Temp Pulse Resp BP Pulse Ox O2 Del Method 07/15/23 07:58 Room Air 07/15/23 07:52 97.7 F 56 L 16 131/83 98 Room Air 07/14/23 23:23 97.5 F L 63 16 128/77 97 Room Air Coding Level of Care Code 09289 IN/OBS CONSULT LVL 4,60M Diagnoses Crohn's disease K50.90
[2023-07-15] MEDS: predniSONE 20 MG TAB PO SCH (10:39)
--- NOTE | 2023-07-15 11:46 | Hospitalist Progress Note ---
Date of Service July 15, 2023 Assessment & Plan (1) Crohn's disease: (2) Abdominal pain: Plan Mr. Martinez is a 57 year old gentleman with past medical history remarkable for Crohn's disease, presented to [facility] ED due to diarrhea and abdominal cramping. No records available for view in care everywhere. #Acute flare of Crohns Disease Bowel wall thickening and surrounding fat stranding in the cecum compatible with inflammatory bowel disease in this patient with history of Crohn's. No evidence of appendicitis. -s/p methylpred 120mg in ed -Tylenol, Toradol for moderate pain, Dilaudid for severe -Cipro/Flagyl empirically -GI consult, discuss continued steroid taper -Gentle IVF and CLD -Clinically little better today with decreasing pain and no diarrhea, no nausea no vomiting -C-reactive protein is normal -Appreciate GI input and recommendation -Started with oral prednisone 40 mg a day which will be tapered 5 mg each week until completion -Will advance diet to regular and make sure he can tolerate it before going home this afternoon -He will need some pain medications-he was warned against using it wisely so that he can avoid constipation and drowsiness -He does not need any antibiotic on discharge and that was discussed with the distribution driver #Gerd On home omeprazole BID -PPI IV in interim while admitted #PTSD #Depression Continue bupropion 100mg daily Continue hydroxyzine 25mg qpm Continue diazepam prn 100mg daily #asthma #chronic rhinitis singulair DVT lovenox Admit med surg Will continue current management Admission and Anticipated Discharge Date Admission Date: July 13, 2023 Subjective 07/14/2023 The patient was seen and examined in medical floor in the presence of the He has been complaining of right lower quadrant pain for the last 2 to 3 days Denies any nausea or vomiting and does not have any bloody stool No fever and no chills He has been feeling a little bit better since admission 07/15/2023 The patient was seen and examined in medical floor in the presence of the Still has pain in the right lower quadrant Has not tried any solid food yet Denies any fever and or chills and no signs of infection Review of Systems Review of Systems: All systems reviewed and are unremarkable except as noted below Physical Exam Physical Exam: Lying in bed with some discomfort due to abdominal pain Constitutional: well developed, well nourished, + ill appearing and + obese Eyes: PERRL, conjunctivae normal, anicteric sclerae ENMT: external ear and nose normal, oropharynx normal Neck: trachea midline, no thyromegaly Respiratory: no respiratory distress Auscultation: lungs clear to auscultation bilaterally Cardiovascular: Rate/Rhythm: regular rate and regular rhythm; not tachycardic Heart Sounds: normal S1 and normal S2; no murmur Extremities: no edema Gastrointestinal (Abdomen): Inspection/Auscultation: normal bowel sounds; abdomen not distended Percussion/Palpation: + abdomen tender (Right lower quadrant without guarding and no rigidity) and abdomen soft Musculoskeletal: No acute arthritis involving any of the joints Neurologic: normal touch/pain/proprioception and moves all extremities; no focal motor deficits Psychiatric: A+Ox3, euthymic affect Lymphatic: no cervical or axillary lymphadenopathy Results & Data Results & Data Vital Signs (Past 12 Hours) Vital Signs Temp Pulse Resp BP Pulse Ox O2 Del Method 07/15/23 07:58 Room Air 07/15/23 07:52 36.5 C 56 L 16 131/83 98 Room Air Laboratory Results Short CBC 07/15/23 Range/Units 06:32 WBC 8.89 (4.8-10.8) K/ul Hgb 12.5 L (14.0-18.0) g/dl Hct 36.8 L (42.0-52.0) % Plt Count 219 (130-400) K/uL BMP 07/15/23 06:32 Sodium 139 Potassium 3.6 Chloride 105 Carbon Dioxide 26 BUN 16 Creatinine 1.12 Glucose 108 H Calcium 8.6 Medications Administered Current Inpatient Medications Acetaminophen (Acetaminophen 325 Mg Tab) 650 mg PO Q4H PRN PRN Reason: Pain or Fever Stop: 08/12/23 16:19 Bupropion HCl (Bupropion Sr 100 Mg Tabcr) 100 mg PO DAILY SULEMA Stop: 08/13/23 08:59 Last Admin: 07/15/23 08:22 Dose: 100 mg Diazepam (Diazepam 5 Mg Tablet) 2.5 mg PO DAILY PRN PRN Reason: Panic Attack(S) Stop: 08/12/23 16:19 Enoxaparin Sodium (Enoxaparin Inj 40 Mg/0.4 Ml Syr) 40 mg SQ Q24H SULEMA Stop: 08/12/23 17:59 Last Admin: 07/14/23 17:55 Dose: Not Given Fluticasone Furoate (Fluticasone Furoate 100mcg 14 Puffs/Inhaler) 1 puffs INH DAILY [facility]; Protocol Stop: 08/13/23 08:59 Last Admin: 07/15/23 08:22 Dose: 1 puffs Hydromorphone HCl (Hydromorphone Inj 1 Mg/Ml Syringe) 1 mg IV Q6H PRN PRN Reason: Severe Pain (Scale 7, 8, 9,10) Stop: 07/27/23 16:19 Last Admin: 07/14/23 05:02 Dose: 1 mg Hydroxyzine HCl (Hydroxyzine Hcl 25 Mg Tab) 25 mg PO HS [facility] Stop: 08/12/23 20:59 Last Admin: 07/14/23 20:09 Dose: 25 mg Pantoprazole Sodium 40 mg/ (Syringe) 10 mls @ 5 mls/min IV BID [facility] Stop: 08/12/23 20:59 Last Admin: 07/15/23 08:23 Dose: 5 mls/min Ketorolac Tromethamine (Ketorolac 30 Mg/Ml Vial) 30 mg IV Q6H PRN PRN Reason: Moderate Pain (Scale 4, 5, 6) Stop: 07/18/23 16:19 Last Admin: 07/14/23 16:51 Dose: 30 mg Montelukast Sodium (Montelukast Sodium 10 Mg Tablet) 10 mg PO DAILY [facility] Stop: 08/13/23 08:59 Last Admin: 07/15/23 08:22 Dose: 10 mg Prednisone (Prednisone 20 Mg Tab) 40 mg PO DAILY [facility] Stop: 08/14/23 09:59 Last Admin: 07/15/23 10:39 Dose: 40 mg
== END 2023-07-15 13:26 | disposition home or self-care (01) | DRG 387 ==
LOC: ED 08:11 → 3E 13:33 → SUATTDRO 13:33 → 3E 14:58